=== PATIENT | female | born 1970 | race Caucasian/White ===

== ENCOUNTER 2017-03-05 19:31 | Emergency (ER) | payer OTHER ==
[~2017-03-05] VITALS: Ht 157.5 cm; Wt 68.0 kg
[2017-03-05 20:36] LABS: BLOOD UREA NITROGEN 11 mg/dL (7-18)
[2017-03-05 21:03] VITALS: BP 134/84
== END 2017-03-05 21:31 | disposition home or self-care (01) ==
LOC: ED 21:00
DX: J04.0 Acute laryngitis (principal)
CPT/HCPCS: 36415; 71020; 80048; 82040; 85025; 93005; 99285